=== PATIENT | female | born 1995 | race Hispanic/Latino ===

== ENCOUNTER 2017-04-22 21:12 | Emergency (ER) | payer OTHER ==
[~2017-04-22] VITALS: Ht 144.8 cm; Wt 50.9 kg
[2017-04-22 21:28] VITALS: BP 114/74; PULSE 65; RESP 16; O2SAT 100
--- NOTE | 2017-04-22 21:41 | ED.REPORT ---
HPI-Abd Pain F Under 38 Date of Service Apr 22, 2017 ED Provider: Angelique Hodge MD Pt is a healthy 22 y/o female presenting to the ED c/o menstrual cramps onset yesterday. She c/o associated low back pain and vaginal bleeding. Her last period ended March 29. She is not using control and is not trying to get . She sometimes experiences menstrual cramps but not this severe. She normally uses Tylenol for her cramps. She is going to meet a new PCP next month. Nursing Notes Stated Complaint: CRAMPS, LOW BACK PAIN, BLEEDING Chief Complaint: Female Abdominal Pain Nursing Notes Reviewed: Yes Allergies: Coded Allergies: No Known Allergies (Unverified , 04/22/17) Scheduled PRN Naproxen (Naprosyn) 500 Mg Tablet 500 MG PO BID PRN PRN For Pain use during your period to help with cramping General Time Seen by MD: 21:37 Chief Complaint Abdominal pain Hx Obtained From: Patient Arrived By: Walk-in Sudden in Onset?: No Onset Occurred: Yesterday Symptom Duration: Since onset Progression since Onset: Unchanged Location: : Abdomen lower Quality: Cramping Severity: Current: Moderate Severity: Maximum: Moderate Recent Healthcare: Previous diagnosis Similar Sx Previous: Yes Past Medical History Past Medical History Denies Past Surgical History Appendectomy Smoking History Never Smoker Social History Alcohol Use: Denies alcohol use Drug Use: Denies drug use Ambulatory Status Independent Review of Systems Constitutional: Denies: Chills, Fever Respiratory: Denies: Non-productive cough, Shortness of breath Cardiovascular: Denies: Chest pain GI: Reports: Abdominal pain, Denies: Nausea, Vomiting Female: Reports: Vaginal bleeding - abnl Musculoskeletal: Reports: Lumbar pain Complete sys rev & neg: except as marked. Physical Exam Initial Vital Signs Vital Signs (First) Date Time Temp Pulse Resp B/P Pulse Ox O2 Delivery O2 Flow Rate FiO2 04/22/17 21:28 37.0 65 16 114/74 100 Room Air Initial VS: Reviewed, Vital signs normal Head / Eyes: Atraumatic, Normocephalic, PERRL ENT: Mucous membranes moist, Conjunctiva normal, No scleral icterus Neck: Supple, Full range of motion Extremities: Vascular intact, Neuro intact, No swelling Skin: Warm, Dry, No cyanosis Neurologic: Alert, Oriented, Nonfocal Psychiatric: Mood/affect normal, Behavior normal, Normal thought content General/Constitutional: Awake, Alert, No acute distress, Well appearing, Well developed, Well hydrated, Well nourished, Cooperative, Not toxic appearing Respiratory / Chest: Breath sounds NL, Breath sounds = bilat, No respiratory distress, No rales, No rhonchi, No wheezing, No retractions, No stridor Cardiovascular: Heart rate NL, Regular rhythm, Heart sounds NL, No murmurs Abdomen: Atraumatic, Soft, No guarding, No rebound, No distention, No palpable mass Tenderness/Guarding/Rebound: Positive: Tender suprapubic (mild), Negative: Tender LLQ..., Tender LUQ..., Tender RLQ..., Tender RUQ... Back: Full range of motion, Painless range of motion Muscle ache in the low back which is not reproducible Interpretation & Diagnostics Interpretation & Diagnostics: Urine preg: negative Urine dip: positive blood, no signs of infection Re-Eval/Medical Decision Re-Evaluation/Progress : Time of Eval: 21:58 Re-Evaluation/Progress Note: Pt rechecked. Discussed urine results. Informed pt of plan for discharge. Pt understands and agrees with plan for discharge. F/U instructions and RTER warnings given. All questions addressed. Counseled Regarding: Diagnosis, Lab results, Need for follow-up, When/why to return to ED Discharge & Departure Primary Impression: Menstrual cramps Ruled Out: , UTI (urinary tract infection) Disposition: Home Discharge Condition All VS Reviewed: Yes Condition: Stable Patient Instructions: Abdominal Pain (ED) Additional Instructions: Thank you for entrusting us with your care. Your urine showed no signs of infection and you are NOT . I suspect your symptoms are caused by menstrual cramps that are worse than usual. Take Naprosyn once in the morning and once at night while you are experiencing your period. This should relieve the cramping. You received one dose tonight. Return to the emergency department if you experience worsening abdominal pain, vomiting, fever, severe vaginal bleeding, lightheadedness, or other concerning symptoms. Follow-up with your primary care doctor as scheduled. Please discuss the option of control during that visit. It was nice meeting you. Referrals: Arnie Jacobsen MDibe Attestation Portions of this note were transcribed by Lazarus Conley. I, Dr. Hodge personally performed the history, physical exam and medical decision-making; I reviewed and confirmed the accuracy of the information in the transcribed note. copies to: Arnie Jacobsen MD,Angelique Hanley MD Apr 22, 2017 21:41 LAZARUS CONLEY Apr 22, 2017 21:48
[2017-04-22] MEDS ORDERED: NAPR500T PO (21:58)
== END 2017-04-22 22:31 | disposition home or self-care (01) ==
LOC: SED 21:12
DX: N94.6 Dysmenorrhea, unspecified (principal); M54.5 Low back pain; N93.9 Abnormal uterine and vaginal bleeding, unspecified